=== PATIENT | female | born 1975 | race Caucasian/White ===

== ENCOUNTER 2023-04-02 16:22 | Emergency (ER) | payer OTHER ==
[~2023-04-02] VITALS: Ht 157.5 cm; Wt 98.6 kg
[2023-04-02] MEDS ORDERED: HYDROCHLOROTH12.5 MG (16:31)
[2023-04-02] MEDS ORDERED: GABAPENTIN600 MG (16:32)
[2023-04-02] MEDS ORDERED: DICLOFENAC SODI50 MG (16:32)
[2023-04-02 19:50] VITALS: BP 147/88
== END 2023-04-02 19:51 | disposition home or self-care (01) ==
LOC: ED 16:22
DX: S93.401A Sprain of unspecified ligament of right ankle, initial encounter (principal); X50.1XXA Overexertion from prolonged static or awkward postures, initial encounter; Z91.040 Latex allergy status
CPT/HCPCS: 73610; 73630; 99283-25